=== PATIENT | male | born 1990 | race Caucasian/White ===

== ENCOUNTER 2020-11-27 23:20 | Emergency (ER) | payer OTHER ==
[2020-11-27 23:52] VITALS: BP 153/91; PULSE 90; TEMP 97.8; BMI 25.8
== END 2020-11-28 02:53 | disposition home or self-care (01) ==
LOC: EDBD → JER 23:20
DX: Z03.818 Encounter for observation for suspected exposure to other biological agents ruled out (principal)
CPT/HCPCS: 71046-TC-FY; 93005; 93010; 99283-25; C9803; U0003